=== PATIENT | male | born 2000 | race Caucasian/White ===

== ENCOUNTER 2021-07-24 16:38 | Emergency (ER) | payer BC ==
[2021-07-24 17:48] LABS: HEMOGLOBIN 14.7 gm/dl (14.0-17.5); RED BLOOD COUNT 4.81 M/UL (4.20-5.50); WHITE BLOOD COUNT 9.3 K/UL (4.5-11.0)
[2021-07-24 18:06] LABS: BUN/CREATININE RATIO 14 (0-10)
[2021-07-24] MEDS ORDERED: TAMIFLU75 MG PO (19:02)
[2021-07-24] MEDS ORDERED: IBUPROFEN800 MG PO (19:02)
== END 2021-07-24 19:25 | disposition home or self-care (01) ==
LOC: ER1 16:38
PROVIDERS: Emergency Medicine
DX: J10.1 Influenza due to other identified influenza virus with other respiratory manifestations (principal); R06.02 Shortness of breath; Z20.822 Contact with and (suspected) exposure to COVID-19; F17.290 Nicotine dependence, other tobacco product, uncomplicated
CPT/HCPCS: 0240U; 71045; 80053; 81001; 83605; 83735; 84100; 85025; 87040; 87081; 87086; 87880; 93005; 99284; J1885; J7030; J7040